=== PATIENT | male | born 1960 | race Two or more races ===

== ENCOUNTER 2021-10-25 23:36 | Emergency (ER) | payer MEDICAID ==
[~2021-10-25] VITALS: Ht 165.1 cm; Wt 64.0 kg
[2021-10-26] MEDS ORDERED: CLONIDINE 0.1MG TABLET PO ONE (00:30)
[2021-10-26 03:00] VITALS: BP 154/85
== END 2021-10-26 03:07 ==
LOC: ER 23:36
DX: I10 Essential (primary) hypertension (principal); E11.65 Type 2 diabetes mellitus with hyperglycemia; E78.00 Pure hypercholesterolemia, unspecified
CPT/HCPCS: 99285